=== PATIENT | male | born 1940 | race Caucasian/White ===

== ENCOUNTER 2016-09-14 17:25 | Inpatient (IN) | payer OTHER, BC ==
[~2016-09-14] VITALS: Ht 177.8 cm; Wt 90.9 kg
--- NOTE | ~2016-09-14 | 2DMMODE ---
[facility] [address] [address] 2 D/M-MODE ECHOCARDIOGRAM Name: TIMBRYCE Room #: 207-P ADM IN M.R.#: [id number] Admission: 09/15/16 Attend Phys: Denis Rowell, Discharge: Date of : 42 Date of Service: 09/15/16 0914 Report #: [id number] THIS REPORT FOR: //name// APPROVED REPORT Study performed: 09/15/2016 08:36:03 EXAM: Comprehensive 2D, Doppler, and color-flow Echocardiogram Patient Location: Echo lab Room #: 207 Status: routine Other Information Study Quality: Adequate Indications Elevated Troponin, elevated BNP, CP, SOB. Hx: COPD, HTN, HLP 2D Dimensions RVDd: 36.37 mm LVEF(%): 68.34 (>50%) IVSd: 9.27 (7-11mm) LVOT Diam: 21.78 (18-24mm) LVDd: 44.38 mm PWd: 8.79 (7-11mm) Ascending Ao: 32.19 (22-36mm) LVDs: 27.52 (25-40mm) Aortic Root: 38.37 mm Esquivel's LVEF: 68.34 % Volumes Left Atrial Volume (Systole) Single Plane 4CH: 45.84 mL Single Plane 2CH: 43.58 mL LA ESV Index: 24.00 mL/m2 Aortic Valve AoV Peak Ollie.: 1.41 m/s AO Peak Gr.: 7.96 mmHg LVOT Max P.33 mmHg LVOT Max V: 1.15 m/s SENA Vmax: 3.05 cm2 Mitral Valve E/A Ratio: 0.9 MV Decel. Time: 168.79 ms MV E Max Ollie.: 0.90 m/s MV A Ollie.: 1.04 m/s MV PHT: 48.95 ms IVRT: 57.67 ms [facility] [place] [place] [address] 2 D/M-MODE ECHOCARDIOGRAM Name: BRYCE DUMONT Room #: 207-P [facility] IN .R.#: [id number] Admission: 09/15/16 Attend Phys: Denis Rowell, Discharge: Date of : 42 Date of Service: 09/15/16 0914 Report #: [id number] Pulmonary Valve PV Peak Ollie.: 0.94 m/s PV Peak Gr.: 3.53 mmHg Pulmonary Vein P Vein S: 0.66 m/s P Vein A: 0.45 m/s P Vein D: 0.49 m/s P Vein A Dur.: 90.0 msec P Vein S/D Ratio: 1.35 Tricuspid Valve RAP Estimate: 5.00 mmHg Left Ventricle The left ventricle is normal size. There is normal LV segmental wall motion. There is normal left ventricular wall thickness. Left ventricular systolic function is normal. LVEF is 55%. Grade I diastolic dysfunction Right Ventricle The right ventricle is normal size. The right ventricular systolic function is normal. Atria The left atrium size is normal. The right atrium size is normal. Aortic Valve Aortic valve is calcified. No aortic regurgitation is present. There is no aortic valvular stenosis. Mitral Valve The mitral valve is normal in structure. There is no mitral valve regurgitation noted. No evidence of mitral valve stenosis. Tricuspid Valve The tricuspid valve is normal in structure. There is no tricuspid valve regurgitation noted. Pulmonic Valve The pulmonary valve is normal in structure. There is no pulmonic valvular regurgitation. Great Vessels Aortic root is at the upper limits of normal. The ascending aorta is normal in size. IVC is normal in size and collapses >50% with inspiration. [facility] [address] [email or web address] [address] 2 D/M-MODE ECHOCARDIOGRAM Name: BRYCE DUMONT Room #: 207-P [facility] IN M.R.#: [id number] Admission: 09/15/16 Attend Phys: Denis Rowell, Discharge: Date of : 42 Date of Service: 09/15/16 0914 Report #: [id number] Pericardium There is no pericardial effusion. <Conclusion> Left ventricular systolic function is normal. There is normal LV segmental wall motion. LVEF 55%. Grade I diastolic dysfunction Aortic valve is calcified. No aortic valvular stenosis or insufficiency. The mitral valve is normal in structure. No mitral valve regurgitation noted. Pulmonary artery pressure could not be reliably ascertained There is no pericardial effusion. <ELECTRONICALLY SIGNED> By: Shabbir Serna MD, [facility] 09/15/16913 3 3 Shabbir Serna MD, FAC /INF
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
--- NOTE | ~2016-09-14 | EKG ---
[place] [address] [facility] [place] [address] ELECTROCARDIOGRAM REPORT Name: BRYCE DUMONT Room #: 207-P [facility] M.R.#: [id number] Admission: 09/14/16 Attend Phys: Denis Rowell DO Discharge: Date of : 42 Report #: [id number] THIS REPORT FOR: //name// [facility] ED Test Date: 2016-09-14 Test Time: 17:31:04 Pat Name: BRYCE DUMONT Department: Room: 207 Gender: M Neuropsychiatric Aide: SERINA : 1940 Requested By: Rigo Arreguin Order Number: [id number] MD: Shabbir Serna Measurements Intervals [place] Rate: 105 P: 19 MA: 178 QRS: -27 QRSD: 89 T: 66 QT: 343 QTc: 454 Interpretive Statements Sinus tachycardia Borderline left axis deviation Low voltage, extremity leads Abnormal R-wave progression, late transition No previous ECG available for comparison Electronically Signed On 09-15-2016 9:00:36 CDT by Shabbir Serna [email or web address] <ELECTRONICALLY SIGNED> By: Shabbir Serna MD, [facility] 09/15/16 0900 173 30 Shabbir Serna MD, [facility] /EPI
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
--- NOTE | ~2016-09-14 | HC ---
[facility] [place] [address] CONSULTATION Name: TIMBRYCE Room #: 207-P ADM IN M.R.#: [id number] Admission: 09/15/16 Attend Phys: Denis Rowell DO Discharge: Date of : 42 Report #: [id number] THIS REPORT FOR: //name// CC: Linus Rowell DATE OF SERVICE: 09/15/2016 CARDIOLOGY CONSULTATION HISTORY OF PRESENT ILLNESS: The patient is a 76-year-old male, patient of Dr. Linus Bates, admitted last night to the [facility] with questionable confusion and dyspnea, brought in by his grand-daughter. He has been getting progressively weak with a cough for the last day or so prior to this admission and then developed some what sounds more like pleuritic chest pain. It was worse when he would move the wrong way he described. He does not report any current medications. There is some questionable history of hypertension, but he is taking no current medications. It sounds like he has been relatively healthy. He lives alone, independent. He takes care of his grandsons. He is and has 3 children. He was a heavy tobacco user until 15 years ago. He has never seen pulmonary. There was no documented fever. However, there was some associated cough. The laboratory work is not diagnostic for an ischemic event. Troponins were 0.05, 0.08, and 0.08. There are no diagnostic EKG changes and this is not significant elevation. Creatinine is 1.2 and potassium 3.9. Liver function tests were normal. His total cholesterol is 146, his triglycerides are 121, his HDL is 34, and his LDL is 88. His BNP was 2100. White count was 17.1, H and H of 13 and 39.9, and platelets of 227. There was a CT of the head, which revealed atrophy, but no acute process. I also did a lower extremity venous study and that was negative for DVT. He has minimal edema. The chest x-ray revealed some moderate COPD, bibasilar atelectasis, and question of a possible basilar pneumonitis that would be consistent with this finding. The CT of the chest, a small noncalcified right lower lung nodule, some hilar adenopathy is noted. No evidence of pulmonary emboli. The patient denies any, until recently, fever, night sweats, or weight loss. PAST MEDICAL HISTORY: Positive for some hypertension, some headache, history of splenectomy, and DJD. SOCIAL HISTORY: He is retired. He is , 3 children. He takes care of his grandkids. He is very active. He quit tobacco 15 years ago. No significant alcohol use. FAMILY HISTORY: Father had a bypass at 71. No other premature disease was noted. [facility] [address] [place] [address] CONSULTATION Name: BRYCE DUMONT Room #: 207-P [facility] IN M.R.#: [id number] Admission: 09/15/16 Attend Phys: Denis Rowell DO Discharge: Date of : 42 Report #: [id number] ALLERGIES: No known drug allergies. PHYSICAL EXAMINATION: GENERAL: He is pleasant, alert, comfortable, lying in bed with 2 liters of oxygen. VITAL SIGNS: Blood pressure is 114/66 and pulse 80. HEENT: Eyes reveal xanthelasmas. Pharynx is clear. NECK: Shows preserved upstrokes without JVD or bruits. LUNGS: Prolonged expiratory phase. There are diminished breath sounds in the bases bilaterally. CARDIOVASCULAR: Distant heart tones, S1 and S2. There is no significant murmur or gallop. ABDOMEN: Soft. No HSM or abdominal bruit. EXTREMITIES: Reveal trace of nonpitting edema. NEUROLOGIC: Nonfocal. SKIN: Warm and dry without xanthoma or ulcer. ____ some red maculopapular lesions ____on his lower extremities, but these have resolved. They state that they were there last night. The skin is currently warm and dry without lesions. MUSCULOSKELETAL: No gross joint deformity. ASSESSMENT: 1. Apparent chest pain, probable pleuritic secondary to a pneumonitis. 2. Pneumonitis. 3. Hilar adenopathy of unclear significance. 4. Minimal troponin elevation, which is not diagnostic for an ischemic event, no EKG changes, and no symptoms of chest pain or anginal-type issues. 5. Suspect underlying chronic obstructive pulmonary disease. RECOMMENDATIONS AND PLAN: I would recommend further treatment for this possible pneumonitis and evaluation of the adenopathy. I do not see any evidence that this is unstable or an active cardiac issue. That being said, I would recommend an outpatient stress testing to confirm, but currently IV antibiotics and pulmonary consult regarding the pneumonitis and adenopathy would be of some benefit. We will discuss the above with the primary. Echo Doppler is normal and this has already been performed. We will follow with you. Thank you for allowing me to assist in the care of this patient. By: [id number] Wayne Jeffries MD, FACC /nt
[2016-09-14 17:29] VITALS: BP 119/65
[2016-09-14 18:42] LABS: HEMATOCRIT 42.8 % (42.0-52.0); HEMOGLOBIN 14.4 gm/dL (14.0-18.0); MCHC 33.8 g/dL (28.0-37.0); MCV 100.6 fL (80.0-100.0); RBC 4.25 mil/uL (4.50-6.00); RDW 13.8 % (10.5-14.5)
[2016-09-14 18:43] LABS: MANUAL DIFF YES
[2016-09-14 18:54] LABS: CALCIUM 8.9 mg/dL (8.5-10.1); CREATININE 1.3 mg/dL (0.7-1.3); POTASSIUM 3.6 mmol/L (3.5-5.1)
[2016-09-14 19:00] LABS: APTT 28.5 Seconds (24.5-32.8); INR 1.2
[2016-09-14 19:10] LABS: ABSOLUTE NEUTROPHILS 21.1 thou/uL (1.4-8.2); TOTAL CELL COUNT 100
[2016-09-14 19:10] LABS: URINE BILIRUBIN NEGATIVE (Negative); URINE BLOOD TRACE (Negative); URINE COLOR YELLOW; URINE GLUCOSE-RANDOM* NEGATIVE (Negative); URINE KETONES NEGATIVE (Negative); URINE LEUKOCYTES-REFLEX NEGATIVE (Negative); URINE PROTEIN (DIPSTICK) NEGATIVE (Negative); URINE SPECIFIC GRAVITY <= 1.005 (1.003-1.035); URINE UROBILINOGEN 0.2 E.U./dl (0.2-1.0)
[2016-09-14 19:11] LABS: ALBUMIN 3.5 g/dL (3.4-5.0); CK-MB MASS 0.6 ng/mL (<0.5-3.6); MAGNESIUM 2.1 mg/dL (1.8-2.4); TOTAL BILIRUBIN 0.9 mg/dL (<0.1-1.0); TOTAL PROTEIN 7.9 g/dL (6.4-8.2); TROPONIN-I 0.08 ng/mL (<0.04-0.07)
[2016-09-14 19:12] LABS: PLATELET COUNT 172 thou/uL (150-400)
[2016-09-14 19:59] VITALS: BP 113/60
[2016-09-14 21:18] VITALS: BP 109/66
[2016-09-14 21:19] VITALS: BP 112/71
[2016-09-15] VITALS (7 sets, daily range): BP systolic 11–130; BP diastolic 63–73
[2016-09-15] MEDS ORDERED: ALEVE220 M1 PO (01:13)
[2016-09-15] MEDS ORDERED: ALLERGY10 M1 PO (01:15)
[2016-09-15 03:19] LABS: CHOLESTEROL 146 mg/dL (<200); HDL CHOLESTEROL 34 mg/dL (>40); LDL CHOLESTEROL 88 mg/dL (<100); TC:HDL 4.3 Ratio (Not establshd); TRIGLYCERIDE 121 mg/dL (<150); VLDL 24 mg/dL (<40)
[2016-09-15 05:00] LABS: HEMATOCRIT 39.9 % (42.0-52.0); HEMOGLOBIN 13.3 gm/dL (14.0-18.0); MCH 33.7 pg (26.0-34.0); MCHC 33.4 g/dL (28.0-37.0); RBC 3.96 mil/uL (4.50-6.00); RDW 14.1 % (10.5-14.5); WBC 17.1 thou/uL (4.0-11.0)
[2016-09-15 05:04] LABS: MANUAL DIFF YES
[2016-09-15 05:34] LABS: CALCIUM 8.6 mg/dL (8.5-10.1); CREATININE 1.2 mg/dL (0.7-1.3); POTASSIUM 3.9 mmol/L (3.5-5.1)
[2016-09-15 07:34] LABS: ABSOLUTE NEUTROPHILS 10.9 thou/uL (1.4-8.2); ATYPICAL LYMPHS 1 %; TOTAL CELL COUNT 100
[2016-09-15 07:36] LABS: ANISOCYTOSIS SLIGHT
[2016-09-15 08:17] LABS: PLATELET COUNT 227 thou/uL (150-400)
[2016-09-15 10:03] LABS: CHOLESTEROL 145 mg/dL (<200); HDL CHOLESTEROL 34 mg/dL (>40); LDL CHOLESTEROL 87 mg/dL (<100); TC:HDL 4.3 Ratio (Not establshd); TRIGLYCERIDE 122 mg/dL (<150); VLDL 24 mg/dL (<40)
[2016-09-16 04:00] VITALS: BP 117/68
[2016-09-16 05:37] LABS: ABSOLUTE NEUTROPHILS 8.3 thou/uL (1.4-8.2); BASOPHILS 0.4 % (0.0-2.0); HEMOGLOBIN 12.7 gm/dL (14.0-18.0); MCH 33.6 pg (26.0-34.0); MCHC 33.4 g/dL (28.0-37.0); MCV 100.5 fL (80.0-100.0); MONOCYTES 7.8 % (1.0-8.0); PLATELET COUNT 250 thou/uL (150-400); POLYS 71.8 % (36.0-66.0); RBC 3.78 mil/uL (4.50-6.00); WBC 11.5 thou/uL (4.0-11.0)
[2016-09-16 05:45] LABS: MANUAL DIFF NO
[2016-09-16 05:52] LABS: ALBUMIN 3.1 g/dL (3.4-5.0); CALCIUM 8.8 mg/dL (8.5-10.1); MAGNESIUM 2.4 mg/dL (1.8-2.4); POTASSIUM 4.4 mmol/L (3.5-5.1); TOTAL BILIRUBIN 0.2 mg/dL (<0.1-1.0); TOTAL PROTEIN 7.5 g/dL (6.4-8.2)
[2016-09-16 07:15] VITALS: BP 115/71
[2016-09-16 07:25] VITALS: BP 115/71
[2016-09-16 11:00] VITALS: BP 113/56
[2016-09-16 15:01] LABS: ABG SAMPLE TYPE ARTERIAL; BE(vivo) -0.8 mmol/L (-2 to +3); HCO3 22.2 mmol/L (22.0-26.0); LACTATE 1.94 mmol/L (0.5-2.0); O2(CT) 18.6 mL/dL (15.0-23.0); O2Hb 93.3 % (92.0-98.0); PCO2 32.1 mmHg (35.0-45.0); PO2 65.3 mmHg (80.0-100.0); STICK SITE L.RADIAL; pH 7.457 (7.360-7.450); tCO2 23.1 mmol/L (24.0-30.0)
[2016-09-16 15:59] VITALS: BP 116/61
[2016-09-16 19:43] VITALS: BP 108/57
[2016-09-17] VITALS (7 sets, daily range): BP systolic 119–145; BP diastolic 61–85
[2016-09-17 04:42] LABS: POTASSIUM 3.9 mmol/L (3.5-5.1)
[2016-09-17 08:36] LABS: ABSOLUTE NEUTROPHILS 10.8 thou/uL (1.4-8.2); BASOPHILS 0.6 % (0.0-2.0); EOSINOPHILS 0.1 % (0.0-3.0); HEMATOCRIT 41.3 % (42.0-52.0); LYMPHOCYTES 25.5 % (24.0-44.0); MCH 34.1 pg (26.0-34.0); MCHC 33.9 g/dL (28.0-37.0); MCV 100.7 fL (80.0-100.0); MONOCYTES 4.7 % (1.0-8.0); POLYS 69.1 % (36.0-66.0); RDW 14.1 % (10.5-14.5); WBC 15.6 thou/uL (4.0-11.0)
[2016-09-17 08:47] LABS: MANUAL DIFF NO
[2016-09-17 10:40] LABS: FOLIC ACID 12.1 ng/mL (8.6-58.9); TSH 0.538 uIU/mL (0.358-3.740)
[2016-09-17 12:02] LABS: PLATELET COUNT 282 thou/uL (150-400)
[2016-09-18 03:02] VITALS: BP 149/81
[2016-09-18 03:26] LABS: ABSOLUTE NEUTROPHILS 6.5 thou/uL (1.4-8.2); BASOPHILS 0.2 % (0.0-2.0); HEMATOCRIT 41.3 % (42.0-52.0); LYMPHOCYTES 25.8 % (24.0-44.0); MCH 34.1 pg (26.0-34.0); MCHC 33.9 g/dL (28.0-37.0); MCV 100.6 fL (80.0-100.0); MONOCYTES 6.4 % (1.0-8.0); PLATELET COUNT 266 thou/uL (150-400); POLYS 67.6 % (36.0-66.0); RBC 4.11 mil/uL (4.50-6.00); RDW 14.3 % (10.5-14.5); WBC 9.7 thou/uL (4.0-11.0)
[2016-09-18 03:33] LABS: MANUAL DIFF NO
[2016-09-18 03:38] LABS: CALCIUM 8.9 mg/dL (8.5-10.1); CREATININE 1.1 mg/dL (0.7-1.3); POTASSIUM 4.5 mmol/L (3.5-5.1)
[2016-09-18 07:55] VITALS: BP 127/79
[2016-09-18 08:46] LABS: LARGE PLATELETS FEW; PLATELET ESTIMATE NORMAL
[2016-09-18 11:50] VITALS: BP 134/74
[2016-09-18 12:27] VITALS: BP 127/79
[2016-09-18] MEDS ORDERED: DOXYCYCLINE 10100 MG PO (12:46)
[2016-09-18] MEDS ORDERED: MUCINEX DM TABL1 TA1 PO (12:47)
[2016-09-18] MEDS ORDERED: ASPIRIN EC325 M1 PO (12:47)
[2016-09-18] MEDS ORDERED: MEDROL DOSPAK21 TA1 PO (12:47)
[2016-09-18 13:54] VITALS: BP 127/79
[2016-09-19 22:08] LABS: INFLUENZA B Negative (Negative); METAPNEUMOVIRUS Negative (Negative)
[2016-09-20 17:11] LABS: BLASTOMYCES-IMMUNODIFF Negative (Neg:<1:1); HISTOPLASMA-IMMUNODIFF Negative (Neg:<1:1)
[2016-09-20 18:07] LABS: ROCKY MTN SPOT FEVER IgG Equivocal (Negative)
[2016-09-21 01:11] LABS: ALPHA TOCOPHEROL 11.1 mg/L (5.3-17.5)
== END 2016-09-18 15:00 | disposition home or self-care (01) | DRG 871 ==
LOC: ER 17:25 → 2N 19:19 → EROBS 19:19 → 2N 19:31
PROVIDERS: Emergency Medicine; Internal Medicine Cardiovascular Disease; Internal Medicine Geriatric Medicine; Internal Medicine Pulmonary Disease; Nurse Practitioner; Psychiatry & Neurology Neurology
DX: A41.9 Sepsis, unspecified organism (principal); J18.9 Pneumonia, unspecified organism; J96.01 Acute respiratory failure with hypoxia; I21.4 Non-ST elevation (NSTEMI) myocardial infarction; G92 Toxic encephalopathy; J44.0 Chronic obstructive pulmonary disease with (acute) lower respiratory infection; M19.90 Unspecified osteoarthritis, unspecified site; R59.0 Localized enlarged lymph nodes; N18.9 Chronic kidney disease, unspecified; I12.9 Hypertensive chronic kidney disease with stage 1 through stage 4 chronic kidney disease, or unspecified chronic kidney disease; E78.5 Hyperlipidemia, unspecified; Z90.81 Acquired absence of spleen; Z87.81 Personal history of (healed) traumatic fracture; Z86.73 Personal history of transient ischemic attack (TIA), and cerebral infarction without residual deficits; Z87.891 Personal history of nicotine dependence
CPT/HCPCS: 10081

== ENCOUNTER → 2016-10-04 | Outpatient (CLI) | payer OTHER, BC ==
[~2016-10-04] MED LIST: ALEVE220 M1 PO; ALLERGY10 M1 PO; ASPIRIN EC325 M1 PO; DOXYCYCLINE 10100 MG PO; MEDROL DOSPAK21 TA1 PO; MUCINEX DM TABL1 TA1 PO
== END ==
LOC: RAD 12:52
DX: R06.02 Shortness of breath (principal)

== ENCOUNTER → 2016-12-04 | Outpatient (CLI) | payer OTHER, BC | LOC: CAT 09:42 | DX: R91.1 Solitary pulmonary nodule (principal) ==